=== PATIENT | female | born 1935 | race Caucasian/White ===

== ENCOUNTER → 2016-10-18 | Outpatient (CLI) | payer OTHER ==
[~2016-10-18] MED LIST: AMLODIPINE BESYL5 MG PO; ASPIRIN81 M2 PO; ATENOLOL25 MG PO; DAILY VITAMIN1 EAC8 PO; DONEPEZIL HCL5 MG PO; FENOFIBRATE160 M1 PO; FISH OIL 1,0001 EAC7 PO; LISINOPRIL10 MG PO; NIACIN500 M1 PO; POTASSIUM CHLO20 ME1 PO; VICODIN 5-3001 EACH PO; ZOFRAN4 MG PO
== END | disposition home or self-care (01) ==
DX: M16.11 Unilateral primary osteoarthritis, right hip (principal); R26.2 Difficulty in walking, not elsewhere classified; M25.551 Pain in right hip; M25.651 Stiffness of right hip, not elsewhere classified; M62.81 Muscle weakness (generalized)
CPT/HCPCS: 97110 GP; 97150 GO; 97161 GP; 97165 GO; G8978 GP; G8979 GP; G8980 GP; G8984 GO; G8985 GO; G8986 GO

== ENCOUNTER 2016-11-08 05:17 | Inpatient (IN) | payer OTHER ==
[~2016-11-08] VITALS: Ht 167.6 cm; Wt 98.4 kg
[~2016-11-08 05:17] MED LIST changes: +B-COMPLEX-VITA1 EACH PO; +SINEMET 25-1001 EACH PO
[2016-11-08 06:08] VITALS: BP 130/64
[2016-11-08 10:22] LABS: HEMATOCRIT 39.2 % (36.0-46.0); MCH 30.5 PG (29.0-34.0); MCHC 32.4 G/DL (30.0-36.0); MCV 94.2 FL (83-99); MEAN PLAT.VOLUME 9.4 uM^3 (9.5-12.4); PLATELET COUNT 155 K/uL (156-360); RBC DIS.WIDTH-CV 12.7 % (11.8-14.6); RBC DIS.WIDTH-SD 43.7 % (39-53); RED BLOOD COUNT 4.16 M/uL (3.80-5.20); WHITE BLOOD COUNT 8.4 K/uL (4.1-10.2)
[2016-11-08 11:05] VITALS: BP 142/62
[2016-11-08 16:32] VITALS: BP 110/57
[2016-11-08 20:58] VITALS: BP 139/65
[2016-11-09 00:39] VITALS: BP 137/58
[2016-11-09 03:37] VITALS: BP 122/58
[2016-11-09 07:47] VITALS: BP 120/58
[2016-11-09 10:48] LABS: ANION GAP 9 MEQ/L (2-14); CHLORIDE 106 MEQ/L (99-109); GFR ESTIMATE (CALCULATED) > 59 mL/min/; GLUCOSE 131 mg/dL (70-99); POTASSIUM 4.3 MEQ/L (3.7-5.4); SAMPLE HEMOLYSIS CHECK 0; SAMPLE ICTERIC CHECK 0; SAMPLE LIPEMIA CHECK 0; SODIUM 138 MEQ/L (136-147); UREA NITROGEN (BUN) 16 mg/dL (9-23)
[2016-11-09 10:52] LABS: HEMATOCRIT 36.3 % (36.0-46.0); MCV 92.6 FL (83-99)
[2016-11-09 15:40] VITALS: BP 110/55
[2016-11-09 23:51] VITALS: BP 120/56
[2016-11-10 07:56] VITALS: BP 126/57
[2016-11-10 15:42] VITALS: BP 121/71
[2016-11-11 07:00] VITALS: BP 143/63
[2016-11-11] MEDS ORDERED: LOVENOX40 MG/0.4 SC (09:26)
[2016-11-11] MEDS ORDERED: CELECOXIB200 MG PO (09:26)
[2016-11-11] MEDS ORDERED: SENNA PLUS TAB1 EACH PO (09:26)
[2016-11-11] MEDS ORDERED: HYDROCODON-ACE1 EAC7 PO (09:26)
== END 2016-11-11 13:06 | DRG 470 ==
LOC: 3EAST 05:17 → 2SOUTH 05:17 → 3EAST 10:14 → 2SOUTH 11:19 → 3EAST 11-11 13:06
PROVIDERS: Orthopaedic Surgery
PROC: 0SR90JZ Replacement of Right Hip Joint with Synthetic Substitute, Open Approach (ICD-10-PCS; principal; 2016-11-08)
DX: M16.11 Unilateral primary osteoarthritis, right hip (principal); I10 Essential (primary) hypertension; G20 Parkinson's disease; F03.90 Unspecified dementia, unspecified severity, without behavioral disturbance, psychotic disturbance, mood disturbance, and anxiety; Z96.652 Presence of left artificial knee joint; M25.551 Pain in right hip
CPT/HCPCS: 71010; 73501; 80048; 85014; 85018; 85027; C1713; J0690; J1170; J1650; J2250; J2405; J7050